=== PATIENT | female | born 1935 | race Caucasian/White ===

== ENCOUNTER 2019-11-19 11:47 | Inpatient (IN) | payer MEDICARE, SELFPAY ==
[~2019-11-19] VITALS: Ht 160 cm; Wt 49.9 kg
[2019-11-19 11:48] VITALS: BP_SYST 133
[2019-11-19] MEDS ORDERED: NACL 0.9% 1,000 ML IV ONE (11:56)
[2019-11-19 12:40] LABS: BASOPHILS # (AUTO) 0.1 K/uL (0.0-0.2); BASOPHILS % (AUTO) 0.4 % (0.0-2.0); EOSINOPHILS % (AUTO) 0.2 % (0.0-4.0); HEMATOCRIT 43.2 % (36-48); HEMOGLOBIN 14.1 g/dL (12.0-16.0); LYMPHOCYTES # (AUTO) 1.1 K/uL (1.0-5.5); MEAN CORPUSCULAR HEMOGLOBIN 31 pg (27-31); MEAN CORPUSCULAR HGB CONC 33 % (32-36); MEAN CORPUSCULAR VOLUME 94 fL (79.0-98.0); MONOCYTES % (AUTO) 6.1 % (1.7-9.3); NEUTROPHILS # (AUTO) 13.8 K/uL (1.8-7.7); NEUTROPHILS % (AUTO) 86.3 % (40.0-70.0); PLATELET COUNT (AUTO) 341 K/uL (130-430); RED BLOOD CELL COUNT(AUTO) 4.61 MIL/uL (4.2-6.2); RED CELL DISTRIBUTION WIDTH 15.3 % (9.0-15.0)
[2019-11-19 12:51] LABS: ANION GAP 8 (5-15); CALCIUM 9.3 mg/dL (8.4-11.0); CHLORIDE 100 mmol/L (98-107); CREATININE 0.97 mg/dL (0.55-1.30); GLUCOSE 133 mg/dL (70-99); POTASSIUM 4.1 mmol/L (3.5-5.1); SODIUM SERUM 136 mmol/L (136-145); UREA NITROGEN, BLOOD 27 mg/dL (8-21)
[2019-11-19 13:06] LABS: ALANINE AMINOTRANSFERASE 50 U/L (12-78); ASPARTATE AMINOTRANSFERASE 39 U/L (10-37); FREE T4 (FREE THYROXINE) 1.3 ng/dl (0.8-1.5); LIPASE 37 U/L (73-393); THYROID STIMULATING HORMONE 2.02 uIu/mL (0.36-3.74); TOTAL BILIRUBIN 1.1 mg/dL (0.0-1.0)
[2019-11-19 13:10] LABS: BILIRUBIN,URINE NEGATIVE (NEGATIVE); COLOR,URINE YELLOW (YELLOW); GLUCOSE,URINE NEGATIVE (NEGATIVE); KETONES,URINE NEGATIVE (NEGATIVE); LEUKOCYTE ESTERASE ,URINE NEGATIVE (NEGATIVE); NITRITE, URINE NEGATIVE (NEGATIVE); PH,URINE 5.5 (5.0-8.0); PROTEIN URINE TRACE (NEGATIVE); UROBILINOGEN,URINE 0.2 (0.2-1.0)
[2019-11-19 13:11] LABS: BLOOD, URINE TRACE (NEGATIVE)
[2019-11-19 13:12] LABS: CLARITY/URINE SLIGHTLY HAZY (CLEAR)
[2019-11-19 13:21] LABS: BACTERIA,URINE MODERATE /HPF (None Seen); RBC,URINE 0-3 /HPF (0-3); WBC,URINE 0-3 /HPF (0-3)
[2019-11-19 13:22] LABS: MUCUS,URINE 1+ /LPF (None Seen)
[2019-11-19] MEDS ORDERED: cefTRIAXone 1 GM IVPB PREMIX 50 ML IV ONE (13:45)
[2019-11-19 15:30] VITALS: BP_SYST 139
[2019-11-19] MEDS ORDERED: AMLO5TAB4 PO (16:52)
[2019-11-19] MEDS ORDERED: ASA81 PO (16:53)
[2019-11-19] MEDS ORDERED: TIOT4MIS5 IH (16:54)
[2019-11-19] MEDS ORDERED: LIP40 PO (16:54)
[2019-11-19] MEDS ORDERED: ALBUTEROL SULFATE 0.083% 2.5 MG/3 ML VIAL.NEB INH PRN (17:30)
[2019-11-19] MEDS ORDERED: HYDROcodone/ACETAMIN 10-325 MG TAB PO PRN (17:30)
[2019-11-19] MEDS ORDERED: HYDROcodone/ACETAMIN 5-325 MG TAB (NORCO/ VICODIN) PO PRN (17:30)
[2019-11-19] MEDS ORDERED: amLODIPine BESYLATE 5 MG TABLET PO PRN (17:30)
[2019-11-19] MEDS ORDERED: ACETAMINOPHEN 325 MG TABLET PO PRN (17:30)
[2019-11-19] MEDS ORDERED: ONDANSETRON HCL 4 MG/2 ML VIAL IVP PRN (17:30)
[2019-11-19 17:47] VITALS: BP_SYST 139
[2019-11-19] MEDS ORDERED: AZITHROMYCIN 500 MG in NS 250 ML IV SCH (18:00)
[2019-11-19] MEDS: IPRATROPIUM BROM 0.5 MG/2.5 ML VIAL.NEB (ATROVENT) INH SCH ×2 (19:55→23:00)
[2019-11-19 20:00] VITALS: BP_SYST 155
[2019-11-19] MEDS: LORazepam 2 MG/ML VIAL IVP PRN (21:25)
[2019-11-19] MEDS ORDERED: NORMAL SALINE 5 ML DISP.SYRIN IVF SCH (22:00)
[2019-11-19] MEDS: NORMAL SALINE 5 ML DISP.SYRIN IVF SCH (22:16)
[2019-11-19] MEDS: ATORVASTATIN 20 MG TABLET PO SCH (22:16)
[2019-11-20] VITALS: BP_SYST 140
[2019-11-20] MEDS: IPRATROPIUM BROM 0.5 MG/2.5 ML VIAL.NEB (ATROVENT) INH SCH ×6 (03:00→23:01)
[2019-11-20] MEDS: NORMAL SALINE 5 ML DISP.SYRIN IVF SCH ×3 (06:00→22:14)
[2019-11-20 06:52] LABS: BASOPHILS % (AUTO) 0.3 % (0.0-2.0); EOSINOPHILS % (AUTO) 0.2 % (0.0-4.0); HEMATOCRIT 40.2 % (36-48); LYMPHOCYTES # (AUTO) 1.3 K/uL (1.0-5.5); LYMPHOCYTES % (AUTO) 9.6 % (20.5-51.5); MEAN CORPUSCULAR HEMOGLOBIN 31 pg (27-31); MEAN CORPUSCULAR HGB CONC 33 % (32-36); MEAN CORPUSCULAR VOLUME 95 fL (79.0-98.0); MONOCYTES # (AUTO) 0.9 K/uL (0.0-1.0); MONOCYTES % (AUTO) 6.2 % (1.7-9.3); NEUTROPHILS # (AUTO) 11.8 K/uL (1.8-7.7); NEUTROPHILS % (AUTO) 83.7 % (40.0-70.0); PLATELET COUNT (AUTO) 327 K/uL (130-430); RED BLOOD CELL COUNT(AUTO) 4.24 MIL/uL (4.2-6.2); RED CELL DISTRIBUTION WIDTH 15.6 % (9.0-15.0); WHITE BLOOD COUNT (AUTO) 14.1 K/uL (4.8-10.8)
[2019-11-20 07:27] LABS: ALANINE AMINOTRANSFERASE 42 U/L (12-78); ALBUMIN 2.7 g/dL (3.4-4.8); ANION GAP 11 (5-15); ASPARTATE AMINOTRANSFERASE 33 U/L (10-37); CALCIUM 9.2 mg/dL (8.4-11.0); CHLORIDE 98 mmol/L (98-107); CREATININE 0.68 mg/dL (0.55-1.30); GLUCOSE 110 mg/dL (70-99); POTASSIUM 3.2 mmol/L (3.5-5.1); SODIUM SERUM 134 mmol/L (136-145); TOTAL BILIRUBIN 0.9 mg/dL (0.0-1.0); UREA NITROGEN, BLOOD 23 mg/dL (8-21)
[2019-11-20 07:55] LABS: ERYTHROCYTE SEDIMENTATION RATE 74 MM/HR (0-20)
[2019-11-20 08:00] VITALS: BP_SYST 154
[2019-11-20] MEDS ORDERED: TIOTROPIUM BROMIDE 2.5 MCG IH SCH (09:00)
[2019-11-20] MEDS: ASPIRIN 81 MG TAB.CHEW PO SCH (09:00)
[2019-11-20 10:46] LABS: C-REACTIVE PROTEIN QUANT 21.5 mg/dL (0-0.5)
[2019-11-20] MEDS: cefTRIAXone 1 GM in D5W 50 ML IV SCH (12:25)
[2019-11-20 12:33] VITALS: BP_SYST 133
[2019-11-20] MEDS: metroNIDAZOLE 250 mg/NS 50 ML IV SCH ×2 (14:10→22:15)
[2019-11-20 16:22] VITALS: BP_SYST 139
[2019-11-20 20:00] VITALS: BP_SYST 152
[2019-11-20] MEDS: ATORVASTATIN 20 MG TABLET PO SCH (20:36)
[2019-11-20 23:36] VITALS: BP_SYST 144
[2019-11-21] MEDS: IPRATROPIUM BROM 0.5 MG/2.5 ML VIAL.NEB (ATROVENT) INH SCH ×4 (03:19→19:30)
[2019-11-21] MEDS: metroNIDAZOLE 250 mg/NS 50 ML IV SCH ×2 (05:33→18:03)
[2019-11-21] MEDS: NORMAL SALINE 5 ML DISP.SYRIN IVF SCH ×2 (05:45→18:04)
[2019-11-21 06:26] LABS: BASOPHILS # (AUTO) 0.1 K/uL (0.0-0.2); BASOPHILS % (AUTO) 0.6 % (0.0-2.0); EOSINOPHILS # (AUTO) 0.1 K/uL (0.0-0.4); EOSINOPHILS % (AUTO) 1.1 % (0.0-4.0); HEMATOCRIT 39.1 % (36-48); HEMOGLOBIN 12.8 g/dL (12.0-16.0); LYMPHOCYTES # (AUTO) 1.8 K/uL (1.0-5.5); LYMPHOCYTES % (AUTO) 13.9 % (20.5-51.5); MEAN CORPUSCULAR HEMOGLOBIN 31 pg (27-31); MEAN CORPUSCULAR HGB CONC 33 % (32-36); MEAN CORPUSCULAR VOLUME 94 fL (79.0-98.0); MONOCYTES % (AUTO) 7.4 % (1.7-9.3); NEUTROPHILS # (AUTO) 10.1 K/uL (1.8-7.7); PLATELET COUNT (AUTO) 386 K/uL (130-430); RED BLOOD CELL COUNT(AUTO) 4.17 MIL/uL (4.2-6.2); RED CELL DISTRIBUTION WIDTH 15.2 % (9.0-15.0); WHITE BLOOD COUNT (AUTO) 13.2 K/uL (4.8-10.8)
[2019-11-21 07:48] LABS: ANION GAP 15 (5-15); CALCIUM 8.1 mg/dL (8.4-11.0); CHLORIDE 92 mmol/L (98-107); CREATININE 0.67 mg/dL (0.55-1.30); GLUCOSE 90 mg/dL (70-99); SODIUM SERUM 128 mmol/L (136-145); UREA NITROGEN, BLOOD 20 mg/dL (8-21)
[2019-11-21 08:04] LABS: POTASSIUM 2.8 mmol/L (3.5-5.1)
[2019-11-21 08:10] LABS: ERYTHROCYTE SEDIMENTATION RATE 85 MM/HR (0-20)
[2019-11-21] MEDS ORDERED: POTASSIUM CHLORIDE 40 MEQ in NS 250 ML IV ONE (08:15)
[2019-11-21] MEDS: ASPIRIN 81 MG TAB.CHEW PO SCH (09:34)
[2019-11-21] MEDS: cefTRIAXone 1 GM in D5W 50 ML IV SCH (12:19)
[2019-11-21 12:28] VITALS: BP_SYST 104
[2019-11-21 16:16] VITALS: BP_SYST 133
[2019-11-21] MEDS: LORazepam 2 MG/ML VIAL IVP PRN (19:38)
[2019-11-21 20:00] VITALS: BP_SYST 163
[2019-11-21] MEDS ORDERED: cloNIDine HCL 0.1 MG TABLET PO ONE (20:15)
[2019-11-21 20:23] VITALS: BP_SYST 161
== END 2019-11-21 20:48 | disposition short-term general hospital (02) | DRG 871 ==
LOC: SED 11:47 → EEVIPCON 14:12 → STU 14:12
PROVIDERS: ADMIT Preventive Medicine Preventive Medicine/Occupational Environmental Medicine; ATTEND Preventive Medicine Preventive Medicine/Occupational Environmental Medicine
DX: A41.9 Sepsis, unspecified organism (principal); J96.01 Acute respiratory failure with hypoxia; J69.0 Pneumonitis due to inhalation of food and vomit; N39.0 Urinary tract infection, site not specified; E87.1 Hypo-osmolality and hyponatremia; Z68.1 Body mass index [BMI] 19.9 or less, adult; R65.20 Severe sepsis without septic shock; I50.9 Heart failure, unspecified; E83.51 Hypocalcemia; E87.6 Hypokalemia; F03.90 Unspecified dementia, unspecified severity, without behavioral disturbance, psychotic disturbance, mood disturbance, and anxiety; F17.210 Nicotine dependence, cigarettes, uncomplicated; I11.0 Hypertensive heart disease with heart failure; Z20.818 Contact with and (suspected) exposure to other bacterial communicable diseases; I25.10 Atherosclerotic heart disease of native coronary artery without angina pectoris; R62.7 Adult failure to thrive; Z78.9 Other specified health status; Z82.49 Family history of ischemic heart disease and other diseases of the circulatory system; Z82.5 Family history of asthma and other chronic lower respiratory diseases
CPT/HCPCS: 36415; 70260-TC; 71045; 80048; 80053; 81000-TC; 82550-TC; 83605; 83690-TC; 83735-TC; 83880; 84100-TC; 84439; 84443-TC; 84479; 84484; 85025; 85651-TC; 86140; 86710; 87040-TC; 87086; 93005; 93306; 94640; 94760; 96361; 96374; 99285; G0378; J0456; J0696; J2060; J3480; J3490; J7050; J7060; J7613